=== PATIENT | male | born 1995 | race African-American/Black ===

== ENCOUNTER 2018-03-06 18:46 | Emergency (ER) | payer OTHER ==
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
[2018-03-06 21:08] VITALS: BP 141/71
== END 2018-03-06 21:08 | disposition home or self-care (01) ==
DX: R51 Headache (principal); S01.81XD Laceration without foreign body of other part of head, subsequent encounter; Y04.8XXD Assault by other bodily force, subsequent encounter; Y92.89 Other specified places as the place of occurrence of the external cause; Y93.9 Activity, unspecified; Y99.9 Unspecified external cause status